=== PATIENT | female | born 1980 | race Caucasian/White ===

== ENCOUNTER 2016-10-31 01:05 | Emergency (ER) | payer OTHER ==
[~2016-10-31] VITALS: Ht 172.7 cm; Wt 112.5 kg
[~2016-10-31 01:05] MED LIST: LEVO50 PO; PREM3 PO; PROV5 PO
[2016-10-31] MEDS ORDERED: LEVO112T4 PO (01:17)
[2016-10-31 02:27] VITALS: BP 143/89
== END 2016-10-31 02:48 | disposition home or self-care (01) ==
LOC: EMS 01:06
DX: S31.41XA Laceration without foreign body of vagina and vulva, initial encounter (principal); E03.9 Hypothyroidism, unspecified; X58.XXXA Exposure to other specified factors, initial encounter; Y93.89 Activity, other specified; Y92.89 Other specified places as the place of occurrence of the external cause; Y99.8 Other external cause status
CPT/HCPCS: 99281; 99283